=== PATIENT | female | born 1945 | race Caucasian/White ===

== ENCOUNTER 2023-07-07 09:21 | Outpatient (CLI) | payer MEDICARE, OTHER ==
[2023-07-07 11:24] LABS: APPEARANCE,URINE CLEAR (CLEAR); BILIRUBIN,URINE NEGATIVE (NEGATIVE); BLOOD, URINE NEGATIVE Ery/uL (NEGATIVE); COLOR,URINE YELLOW (YELLOW); KETONES,URINE NEGATIVE (NEGATIVE); LEUKOCYTE ESTERASE ,URINE TRACE (NEGATIVE); NITRITE, URINE NEGATIVE (NEGATIVE); PH,URINE 5.5 (5.0-8.0); PROTEIN,URINE NEGATIVE (NEGATIVE); UGLUCOSE NEGATIVE (NEGATIVE); UROBILINOGEN,URINE 0.2 EU/dL (0.2)
[2023-07-07 11:26] LABS: ADD URINE CULTURE NO; BACTERIA,URINE Rare /HPF (None Seen); BASOPHILS # (AUTO) 0.1 K/uL (0.0-0.2); BASOPHILS % (AUTO) 1.1 % (0.0-2.0); EOSINOPHILS # (AUTO) 0.1 K/uL (0.0-0.7); EOSINOPHILS % (AUTO) 1.8 % (0.0-6.0); HEMATOCRIT 40 % (33-45); HEMOGLOBIN 13.3 g/dL (11.5-14.8); LYMPHOCYTES # (AUTO) 2.2 K/uL (0.8-4.8); LYMPHOCYTES % (AUTO) 30.3 % (20.0-44.0); MEAN CORPUSCULAR HEMOGLOBIN 28 PG (26.0-33.0); MEAN CORPUSCULAR HGB CONC 33 g/dl (31.0-36.0); MEAN CORPUSCULAR VOLUME 84 fL (82-100); MONOCYTES # (AUTO) 0.5 K/uL (0.1-1.30); MONOCYTES % (AUTO) 6.3 % (2.0-12.0); NEUTROPHILS # (AUTO) 4.5 K/uL (1.8-8.9); NEUTROPHILS % (AUTO) 60.5 % (43.0-81.0); PLATELET COUNT (AUTO) 272 K/uL (150-450); RBC,URINE 0-2 /HPF (0-2); RED BLOOD CELL COUNT(AUTO) 4.78 MIL/uL (4.0-5.2); RED CELL DISTRIBUTION WIDTH 13.6 % (11.5-15.0); SQUAMOUS EPITHELIAL CELL,UR Rare /HPF (None Seen); WHITE BLOOD COUNT (AUTO) 7.4 K/uL (4.3-11.0)
[2023-07-07 11:36] LABS: INR 0.97 (0.91-1.10); PARTIAL THROMBOPLASTIN TIME 27.6 SEC (24.3-34.3); PROTHROMBIN TIME 10.3 SECS (9.2-11.1)
[2023-07-07 11:37] LABS: ALANINE AMINOTRANSFERASE 38 U/L (12-78); ALBUMIN 3.5 g/dL (3.4-5.0); ALKALINE PHOSPHATASE 78 U/L (46-116); ASPARTATE AMINOTRANSFERASE 24 U/L (15-37); BILIRUBIN,TOTAL 0.3 mg/dL (0.2-1.0); CALCIUM, SERUM 9.6 mg/dL (8.5-10.1); CARBON DIOXIDE 28 mmol/L (21-32); CHLORIDE 104 mmol/L (98-107); CREATININE 0.6 mg/dL (0.6-1.3); GLUCOSE 116 mg/dL (74-106); POTASSIUM 4.1 mmol/L (3.5-5.1); SODIUM SERUM 139 mmol/L (136-145); TOTAL PROTEIN, SERUM 7.6 g/dL (6.4-8.2); UREA NITROGEN, BLOOD 17 mg/dL (7-18)
[2023-07-07 11:45] LABS: CHOLESTEROL 142 mg/dL (<200); HDL CHOLESTEROL 42 mg/dL (40-60); LDL 84 mg/dL (0-99); THYROID STIMULATING HORMONE 1.491 uIU/mL (0.358-3.74); TRIGLYCERIDES 80 mg/dL (30-150)
== END 2023-07-07 23:59 | disposition home or self-care (01) ==
LOC: RAD 09:21
PROVIDERS: ATTEND Internal Medicine Interventional Cardiology
DX: Z01.818 Encounter for other preprocedural examination (principal); R06.00 Dyspnea, unspecified; E11.9 Type 2 diabetes mellitus without complications; I10 Essential (primary) hypertension; R53.83 Other fatigue; E03.9 Hypothyroidism, unspecified; E78.5 Hyperlipidemia, unspecified
CPT/HCPCS: 36415; 71046; 80053-TC; 80061-TC; 81001; 84439-TC; 84443-TC; 85025-TC; 85610-TC; 85730-TC; 87086-TC

== ENCOUNTER 2023-07-16 07:29 | Inpatient (IN) | payer MEDICARE, OTHER ==
[~2023-07-16] VITALS: Ht 160 cm; Wt 75.7 kg
[2023-07-16] MEDS ORDERED: dexaMETHasone SOD PHOSPHATE 0 ML ONE (08:18)
[2023-07-16] MEDS ORDERED: LIDOCAINE 2%-EPI 1:100,000 30 ML VIAL ONE (08:18)
[2023-07-16] MEDS ORDERED: OXYMETAZOLINE HCL NASAL SPRAY 30 ML BOTTLE NS ONE (08:18)
[2023-07-16] MEDS ORDERED: BACITRACIN OPHTH OINT 3.5 GM TUBE ONE (08:53)
[2023-07-16] MEDS ORDERED: FENTANYL PF 250MCG/5ML AMPUL ONE (08:53)
[2023-07-16] MEDS: VANCOMYCIN 1 GM in IV D5W 250ml IV ONE (09:00)
[2023-07-16] MEDS ORDERED: SEVOFLURANE 250 ML BOTTLE IH ONE (09:13)
[2023-07-16] MEDS ORDERED: ONDANSETRON HCL/PF 4 MG/2 ML VIAL IVP PRN (13:00)
[2023-07-16] MEDS: IV NS 0.9% 1,000 ML IV PRN (14:48)
[2023-07-16 16:00] VITALS: BP 125/68; TEMP 98.1; O2SAT 94
[2023-07-16] MEDS ORDERED: OLME1TAB90 PO (16:15)
[2023-07-16] MEDS ORDERED: LINA1TAB7 PO (16:15)
[2023-07-16] MEDS ORDERED: AMLO-212 PO (16:15)
[2023-07-16] MEDS ORDERED: TRAZ-252 PO (16:15)
[2023-07-16] MEDS ORDERED: ROSU20TA32 PO (16:15)
[2023-07-16] MEDS ORDERED: LIPA1CAP15 PO (16:15)
[2023-07-16] MEDS ORDERED: METO25TA4 PO (16:15)
[2023-07-16] MEDS: HYDROMORPHONE 1 MG/1 ML DISP.SYRIN IV PRN (19:07)
[2023-07-16] MEDS: VANCOMYCIN 1 GM in IV D5W 250ml IV SCH (20:06)
[2023-07-16 20:46] VITALS: BP 110/61; TEMP 98.2; O2SAT 92
[2023-07-16] MEDS: ACETAMINOPHEN 325 MG TABLET PO PRN (23:42)
[2023-07-17 05:21] VITALS: O2SAT 97
[2023-07-17 08:14] VITALS: BP 122/67; TEMP 98.4; O2SAT 96
[2023-07-17] MEDS: HYDROCHLOROTHIAZIDE 25 MG TABLET PO SCH (08:33)
[2023-07-17] MEDS: LOSARTAN POTASSIUM 50 MG TABLET PO SCH (08:33)
[2023-07-17] MEDS: AMLODIPINE BESYLATE 5 MG TABLET PO SCH (08:35)
[2023-07-17] MEDS: ATORVASTATIN 40 MG TABLET PO SCH (08:35)
[2023-07-17] MEDS: LINAGLIPTIN 5 MG TABLET PO SCH (08:35)
[2023-07-17 08:36] VITALS: BP 122/67
[2023-07-17] MEDS: METOPROLOL SUCCINATE 25 MG TAB.SR.24H PO SCH (08:36)
[2023-07-17] MEDS: METFORMIN XR 500 MG TAB.SR.24H PO SCH (08:37)
[2023-07-17] MEDS ORDERED: Medication Not On Formulary EA (Linagliptin/Metformin HCl (Jentadueto Xr 2.5 mg-1,000 mg PO SCH (09:00)
[2023-07-17] MEDS ORDERED: Medication Not On Formulary EA (Olmesartan/Hydrochlorothiazide (Olmesartan-Hctz 40-12.5 PO SCH (09:00)
[2023-07-17] MEDS: LIPASE/PROTEASE/AMYLASE 1 EACH CAPSULE.DR PO SCH (13:30)
[2023-07-17] MEDS ORDERED: TRAZODONE 50 MG TABLET PO SCH (22:00)
== END 2023-07-17 13:40 | disposition home or self-care (01) | DRG 516 ==
LOC: DS 07:29 → MED 07:31
PROC: 0NST04Z Reposition Right Mandible with Internal Fixation Device, Open Approach (ICD-10-PCS; principal; 2023-07-16)
PROC: 0NSV04Z Reposition Left Mandible with Internal Fixation Device, Open Approach (ICD-10-PCS; principal; 2023-07-16)
PROC: 0NBV0ZZ Excision of Left Mandible, Open Approach (ICD-10-PCS; principal; 2023-07-16)
PROC: 0CB Mouth and Throat, Excision (ICD-10-PCS; principal; 2023-07-16)
PROC: 0NBR0ZX Excision of Maxilla, Open Approach, Diagnostic (ICD-10-PCS; principal; 2023-07-16)
PROC: 0NUV07Z Supplement Left Mandible with Autologous Tissue Substitute, Open Approach (ICD-10-PCS; principal; 2023-07-16)
PROC: 0NBT0ZZ Excision of Right Mandible, Open Approach (ICD-10-PCS; principal; 2023-07-16)
PROC: 0NSR04Z Reposition Maxilla with Internal Fixation Device, Open Approach (ICD-10-PCS; principal; 2023-07-16)
PROC: 0NUT07Z Supplement Right Mandible with Autologous Tissue Substitute, Open Approach (ICD-10-PCS; principal; 2023-07-16)
PROC: 0NUR0KZ Supplement Maxilla with Nonautologous Tissue Substitute, Open Approach (ICD-10-PCS; principal; 2023-07-16)
PROC: 0WB30ZX Excision of Oral Cavity and Throat, Open Approach, Diagnostic (ICD-10-PCS; principal; 2023-07-16)
PROC: 0NUR07Z Supplement Maxilla with Autologous Tissue Substitute, Open Approach (ICD-10-PCS; principal; 2023-07-16)
DX: S02.40DK Maxillary fracture, left side, subsequent encounter for fracture with nonunion (principal); T81.83XA Persistent postprocedural fistula, initial encounter; S02.609K Fracture of mandible, unspecified, subsequent encounter for fracture with nonunion; S02.40CK Maxillary fracture, right side, subsequent encounter for fracture with nonunion; D16.4 Benign neoplasm of bones of skull and face; D16.5 Benign neoplasm of lower jaw bone; M27.2 Inflammatory conditions of jaws; I10 Essential (primary) hypertension; E11.9 Type 2 diabetes mellitus without complications; E78.5 Hyperlipidemia, unspecified; K86.89 Other specified diseases of pancreas; Z79.84 Long term (current) use of oral hypoglycemic drugs; I34.0 Nonrheumatic mitral (valve) insufficiency; X58.XXXD Exposure to other specified factors, subsequent encounter; J32.0 Chronic maxillary sinusitis; M85.68 Other cyst of bone, other site
CPT/HCPCS: 82962-TC; 94760-TC; 94799-TC; A4223; C1713; G0378; J0330; J1100; J1170; J2405; J2704; J2765; J3010; J3370; J3490; J7030; J7060

== ENCOUNTER 2023-10-21 10:54 | Outpatient (CLI) | payer MEDICARE, OTHER ==
[~2023-10-21 10:54] MED LIST: AMLO-212 PO; LINA1TAB7 PO; LIPA1CAP15 PO; METO25TA4 PO; OLME1TAB90 PO; ROSU20TA32 PO; TRAZ-252 PO
[2023-10-21 11:40] LABS: BASOPHILS # (AUTO) 0.1 K/uL (0.0-0.2); BASOPHILS % (AUTO) 0.9 % (0.0-2.0); EOSINOPHILS # (AUTO) 0.2 K/uL (0.0-0.7); EOSINOPHILS % (AUTO) 2.7 % (0.0-6.0); HEMATOCRIT 38 % (33-45); HEMOGLOBIN 12.4 g/dL (11.5-14.8); LYMPHOCYTES # (AUTO) 2.5 K/uL (0.8-4.8); LYMPHOCYTES % (AUTO) 39.1 % (20.0-44.0); MEAN CORPUSCULAR HEMOGLOBIN 27 PG (26.0-33.0); MEAN CORPUSCULAR HGB CONC 32 g/dl (31.0-36.0); MEAN CORPUSCULAR VOLUME 83 fL (82-100); MONOCYTES # (AUTO) 0.4 K/uL (0.1-1.30); MONOCYTES % (AUTO) 6.9 % (2.0-12.0); NEUTROPHILS # (AUTO) 3.2 K/uL (1.8-8.9); NEUTROPHILS % (AUTO) 50.4 % (43.0-81.0); PLATELET COUNT (AUTO) 255 K/uL (150-450); RED BLOOD CELL COUNT(AUTO) 4.61 MIL/uL (4.0-5.2); RED CELL DISTRIBUTION WIDTH 14.7 % (11.5-15.0); WHITE BLOOD COUNT (AUTO) 6.4 K/uL (4.3-11.0)
[2023-10-21 11:49] LABS: CALCIUM, SERUM 9.3 mg/dL (8.5-10.1); CARBON DIOXIDE 28 mmol/L (21-32); CHLORIDE 104 mmol/L (98-107); CREATININE 0.8 mg/dL (0.6-1.3); GLUCOSE 117 mg/dL (74-106); POTASSIUM 4.4 mmol/L (3.5-5.1); SODIUM SERUM 140 mmol/L (136-145); UREA NITROGEN, BLOOD 22 mg/dL (7-18)
[2023-10-21 11:52] LABS: INR 0.97 (0.91-1.10); PARTIAL THROMBOPLASTIN TIME 25.4 SEC (24.3-34.3); PROTHROMBIN TIME 10.3 SECS (9.2-11.1)
== END 2023-10-21 23:59 | disposition home or self-care (01) ==
LOC: LAB 10:54
PROVIDERS: ATTEND Internal Medicine Interventional Cardiology
DX: Z01.812 Encounter for preprocedural laboratory examination (principal); D68.9 Coagulation defect, unspecified
CPT/HCPCS: 36415; 80048-TC; 85025-TC; 85730-TC

== ENCOUNTER 2023-11-12 09:23 | Inpatient (IN) | payer MEDICARE, OTHER ==
[~2023-11-12] VITALS: Ht 162.6 cm; Wt 72.6 kg
[2023-11-12 12:12] VITALS: BP 119/54; TEMP 98.3; O2SAT 96
[2023-11-12] MEDS ORDERED: VANCOMYCIN 1 GM VIAL ONE (12:53)
[2023-11-12] MEDS ORDERED: dexaMETHasone SOD PHOSPHATE 1 ML ONE (12:53)
[2023-11-12] MEDS ORDERED: LIDOCAINE 2%-EPI 1:100,000 30 ML VIAL ONE (12:53)
[2023-11-12 14:12] VITALS: BP 119/54; TEMP 98.6; O2SAT 96
[2023-11-12] MEDS ORDERED: ACETAMINOPHEN 325 MG TABLET PO PRN (14:30)
[2023-11-12] MEDS ORDERED: ONDANSETRON HCL/PF 4 MG/2 ML VIAL IVP PRN (14:30)
[2023-11-12] MEDS ORDERED: HYDROMORPHONE 1 MG/1 ML DISP.SYRIN IV PRN ×2 (14:30→15:10)
[2023-11-12] MEDS ORDERED: IV NS 0.9% 1,000 ML IV PRN (14:30)
== END 2023-11-12 16:00 | disposition left against medical advice (07) | DRG 496 ==
LOC: DS 09:23 → MED 14:31
PROVIDERS: ADMIT Dentist Oral and Maxillofacial Surgery; ATTEND Dentist Oral and Maxillofacial Surgery
PROC: 0N5R0ZZ Destruction of Maxilla, Open Approach (ICD-10-PCS; principal; 2023-11-12)
PROC: 0WB30ZX Excision of Oral Cavity and Throat, Open Approach, Diagnostic (ICD-10-PCS; principal; 2023-11-12)
PROC: 0NPW04Z Removal of Internal Fixation Device from Facial Bone, Open Approach (ICD-10-PCS; principal; 2023-11-12)
DX: T84.69XA Infection and inflammatory reaction due to internal fixation device of other site, initial encounter (principal); S02.609K Fracture of mandible, unspecified, subsequent encounter for fracture with nonunion; T86.831 Bone graft failure; X58.XXXA Exposure to other specified factors, initial encounter; I10 Essential (primary) hypertension; M89.38 Hypertrophy of bone, other site; K13.70 Unspecified lesions of oral mucosa; R58 Hemorrhage, not elsewhere classified; Y83.8 Other surgical procedures as the cause of abnormal reaction of the patient, or of later complication, without mention of misadventure at the time of the procedure; Y92.89 Other specified places as the place of occurrence of the external cause
CPT/HCPCS: 82962-TC; 88300-TC; 88305-TC; 88311-TC; A4338; G0378; J0461; J0690; J1100; J2704; J3370; J3490; J7030